=== PATIENT | male | born 1950 | race American Indian/Alaskan Native ===

== ENCOUNTER 2018-06-10 08:18 | Outpatient (CLI) | payer OTHER ==
[2018-06-10] MEDS ORDERED: XYLOCAINE TOPICAL 4% TP ONE (08:34)
== END 2018-06-10 08:19 | disposition home or self-care (01) ==
LOC: WOUND 08:18
PROVIDERS: ATTEND Surgery
DX: T23.321A Burn of third degree of single right finger (nail) except thumb, initial encounter (principal); T31.0 Burns involving less than 10% of body surface; G82.21 Paraplegia, complete; X08.8XXA Exposure to other specified smoke, fire and flames, initial encounter; Y93.89 Activity, other specified; Y92.89 Other specified places as the place of occurrence of the external cause; Y99.8 Other external cause status
CPT/HCPCS: 11043; G0463; 99214